=== PATIENT | male | born 1970 | race Caucasian/White ===

== ENCOUNTER 2017-02-03 08:45 | Emergency (ER) | payer BC ==
[2017-02-03 09:00] VITALS: BP 137/89
--- NOTE | 2017-02-03 09:30 | UC ---
HPI Febrile Illness - HPI Summary HPI Summary: Pt presents with low grade fevers fatigue, body aches and nasal congestion x 3 days. Pt has take OTC med with improvment. Pt's SO with influenza 3-4 weeks ago. Pt's daughter currently at computer field technician with similar sx. pt is scheduled to have second roudn testing for possible kidney donation in 3 weeks and wanted to get checked. Pt's medications reviewed this visit - History of Current Complaint Chief Complaint: UCRespiratory Time Seen by Provider: 02/03/17 09:18 Hx Obtained From: Patient Onset/Duration: Started Days Ago Timing: Constant Aggravating Factors: Nothing Alleviating Factors: Nothing Associated Signs and Symptoms: Cough - Allergy/Home Medications Allergies/Adverse Reactions: Allergies Allergy/AdvReac Type Severity Reaction Status Date / Time No Known Allergies Allergy Verified 02/03/17 08:56 Home Medications: Home Medications Cholecalciferol [Vitamin D3 Ultra Potency] 50,000 unit PO WEEKLY 02/03/17 [ History Confirmed 02/03/17] Citalopram TAB* [CeleXA TAB*] 40 mg PO DAILY 02/03/17 [History Confirmed ] LevoCETirizine TAB (NF) [Xyzal TAB (NF)] 5 mg PO DAILY 02/03/17 [History Confirmed 02/03/17] PMH/Surg Hx/FS Hx/Imm Hx Previously Healthy: Yes - Surgical History Surgical History: None - Family History Known Family History: Positive: Hypertension - Social History Occupation: Employed Full-time Lives: With Family Alcohol Use: "several times a week" Substance Use Type: None Smoking Status (MU): Former Smoker Length of Time of Smoking/Using Tobacco: 1 PPD x 17 Years When Did the Patient Quit Smoking/Using Tobacco: ~2014 - Immunization History Most Recent Influenza Vaccination: Not the 2017/2017 Season Review of Systems Constitutional: Fever, Fatigue ENT: Sinus Congestion Respiratory: Cough All Other Systems Reviewed And Are Negative: Yes Physical Exam Triage Information Reviewed: Yes Appearance: Well-Appearing, No Pain Distress, Well-Nourished Vital Signs: Initial Vital Signs Temp 98.9 F 02/03/17 08:54 Pulse 77 02/03/17 08:54 Resp 18 02/03/17 08:54 BP 137/89 02/03/17 08:54 Pulse Ox 100 12/29/17 08:54 Vital Signs Reviewed: Yes Eye Exam: Normal Eyes: Positive: Conjunctiva Clear ENT: Positive: Pharynx normal, Nasal congestion, TMs normal, Sinus tenderness, Other - mmoist +PND + sinuses boggy Dental Exam: Normal Neck exam: Normal Neck: Positive: Supple, Nontender, No Lymphadenopathy Respiratory Exam: Normal Respiratory: Positive: Chest non-tender, Lungs clear, Normal breath sounds, No respiratory distress, No accessory muscle use Cardiovascular Exam: Normal Cardiovascular: Positive: RRR, No Murmur Abdominal Exam: Normal Abdomen Description: Positive: Nontender, No Organomegaly Bowel Sounds: Positive: Present Musculoskeletal Exam: Normal Musculoskeletal: Positive: Strength Intact, ROM Intact Neurological Exam: Normal Psychological Exam: Normal Psychological: Positive: Normal Response To Family Skin Exam: Normal Course/Dx - Course Course Of Treatment: Pt present with progressive body aches, fever, cough and congestion. + flu. will rx tamiflu. secretion precaution. strongly recommend pt d/w transplant team as lab work will likely screen for viruses and pt rx antiviral - recommend sicuss before testing. pt states understanding and agreement - Diagnoses Clinic Provider Diagnoses: influenza Discharge - Discharge Plan Condition: Stable Disposition: HOME Prescriptions: Oseltamivir Phosphate [Tamiflu] 75 mg PO BID #10 cap Patient Education Materials: Influenza (ED) Forms: *Gen. Provider Communication, *Work Release Referrals: Cj David MD [Primary Care Provider] - Additional Instructions: - Okay to alternate ibuprofen (Advil, Motrin) and Tylenol every 3 hours for pain or fever. Take with food. Do NOT take for more than 4-5 days. - Continue to use nasal spray for congestion -Okay to use over the counter cough and cold preparation - Take Tamiflu 2 times a day as prescribed - These infections are spread by oral secretions. Do not share eating or drinking utensils. Frequent hand washing is important. Clean items that may get your secretions on them such as cell phones, ipads, computer mouse, television remotes - It is strongly recommended you contact the transplant service to discuss your influenza B diagnosis and your Tamiflu prescription prior to starting this medication -contact your doctor or return with questions or concerns
== END 2017-02-03 09:50 | disposition home or self-care (01) ==
LOC: UCCORT 08:45
DX: J11.1 Influenza due to unidentified influenza virus with other respiratory manifestations (principal); Z72.89 Other problems related to lifestyle; Z87.891 Personal history of nicotine dependence
CPT/HCPCS: 87502; 99212; G0463